=== PATIENT | female | born 1995 | race Two or more races ===

== ENCOUNTER 2017-08-07 23:49 | Inpatient (IN) | payer MEDICAID ==
[~2017-08-07] VITALS: Ht 160 cm; Wt 80.0 kg
[2017-08-08] MEDS ORDERED: D5%-LACTATED RINGERS 1,000 ML IV SCH (00:06)
[2017-08-08] MEDS ORDERED: OXYTOCIN 30U/ 0.9% NaCL 500ML 500 ML IV PRN (00:06)
[2017-08-08] MEDS ORDERED: OXYTOCIN 30U/ 0.9% NaCL 500ML 500 ML IV ONE (00:06)
[2017-08-08 00:30] LABS: HEMATOCRIT 37.2 % (34.6-47.8); HEMOGLOBIN 12.4 g/dL (11.7-16.4); WHITE BLOOD COUNT 10.6 x10^3/uL (3.4-10)
[2017-08-08] MEDS ORDERED: FENTANYL PF 100 MCG/2ML IVPush PRN (00:30)
[2017-08-08] MEDS ORDERED: FENTANYL PF 100 MCG/2ML IV PRN (00:30)
[2017-08-08] MEDS ORDERED: PENICILLIN GK 5,000,000 UNITS in DEXTROSE 5% 100 ML IVPB ONE (00:30)
[2017-08-08] MEDS ORDERED: ONDANSETRON 2MG/ML, 2ML IVPush PRN (00:30)
[2017-08-08] MEDS ORDERED: CALCIUM CARBONATE 500 MG TAB.CHEW PO PRN (00:30)
[2017-08-08] MEDS ORDERED: OXYTOCIN 30U/ 0.9% NaCL 500ML 500 ML ONE ×2 (00:45→13:40)
[2017-08-08] MEDS ORDERED: PLEASE ENTER HEIGHT AND WEIGHT MC SCH (01:00)
[2017-08-08] MEDS ORDERED: PLEASE ENTER ALLERGIES MC SCH ×2 (01:00)
[2017-08-08 01:15] VITALS: BP 123/65
[2017-08-08] MEDS ORDERED: NEWBORN KIT ONE (01:59)
[2017-08-08] MEDS: PENICILLIN GK 2,500,000 UNITS in DEXTROSE 5% 100 ML IVPB SCH ×2 (04:57→08:58)
[2017-08-08] MEDS ORDERED: FENTANYL/BUPIV./NS/PF 250 ML EPIDCONT ONE (07:37)
[2017-08-08] MEDS ORDERED: LIDOCAINE 1%, 20ML ONE ×2 (07:40→09:16)
[2017-08-08] MEDS ORDERED: LIDOCAINE/PF 1.5%-EPI 1:200K, 30ML ONE (07:40)
[2017-08-08] MEDS: LACTATED RINGERS 1,000 ML IV SCH ×2 (08:08→11:22)
[2017-08-08] MEDS ORDERED: FENTANYL/BUPIV./NS/PF 250 ML EPIDCONT SCH (08:16)
[2017-08-08] MEDS ORDERED: LACTATED RINGERS 1,000 ML IV SCH (08:16)
[2017-08-08] MEDS ORDERED: EPHEDRINE 50 MG/ML, 1ML IVPush PRN (08:30)
[2017-08-08] MEDS ORDERED: NALOXONE 0.4 MG/ML, 1ML IVPush PRN (08:30)
[2017-08-08] MEDS ORDERED: LACTATED RINGERS 1,000 ML IVBOLUS PRN (08:30)
[2017-08-08] MEDS ORDERED: OXYTOCIN 30U/ 0.9% NaCL 500ML 500 ML IV SCH (12:37)
[2017-08-08] MEDS ORDERED: BISACODYL 10 MG SUPP PR PRN (13:00)
[2017-08-08] MEDS ORDERED: ONDANSETRON 2MG/ML, 2ML IV PRN (13:00)
[2017-08-08] MEDS ORDERED: MISOPROSTOL 200 MCG TABLET PR PRN (13:00)
[2017-08-08] MEDS ORDERED: METHYLERGONOVINE 0.2 MG/ML IM PRN (13:00)
[2017-08-08] MEDS ORDERED: DOCUSATE 100 MG CAPSULE PO PRN (13:00)
[2017-08-08] MEDS ORDERED: CARBOPROST TROMETHAMINE 250 MCG/ML, 1ML IM PRN (13:00)
[2017-08-08] MEDS ORDERED: METOCLOPRAMIDE 5 MG/ML, 2ML IV PRN (13:00)
[2017-08-08] MEDS ORDERED: GLYCERIN ADULT SUPP PR PRN (13:00)
[2017-08-08] MEDS ORDERED: OXYcodone/APAP 5/325MG TABLET PO PRN ×2 (13:00)
[2017-08-08] MEDS ORDERED: IBUPROFEN 800 MG TABLET ONE (13:47)
[2017-08-08] MEDS: IBUPROFEN 800 MG TABLET PO PRN ×2 (13:48→22:31)
[2017-08-08 14:45] VITALS: BP 115/71
[2017-08-08 20:00] VITALS: BP 104/65
[2017-08-08 20:36] LABS: HEMATOCRIT 31.8 % (34.6-47.8); HEMOGLOBIN 10.9 g/dL (11.7-16.4); WHITE BLOOD COUNT 13.1 x10^3/uL (3.4-10)
[2017-08-09] VITALS: BP 115/79
[2017-08-09 04:00] VITALS: BP 112/74
[2017-08-09] MEDS: IBUPROFEN 800 MG TABLET PO PRN ×2 (07:12→15:19)
[2017-08-09 08:01] VITALS: BP 115/69
[2017-08-09] MEDS ORDERED: PRENATAL VIT/IRON/FA 1 EACH TABLET PO SCH (09:00)
[2017-08-09 12:00] VITALS: BP 112/74
== END 2017-08-09 16:08 | disposition home or self-care (01) | DRG 775 ==
LOC: LDOP 23:49 → EDIP 08-08 00:13 → LDIP 08-08 01:00 → 2NW 08-08 14:36
PROVIDERS: ADMIT Student in an Organized Health Care Education/Training Program; ATTEND Student in an Organized Health Care Education/Training Program
PROC: 10E0XZZ Delivery of Products of Conception, External Approach (ICD-10-PCS; principal; 2017-08-08)
PROC: 0UQMXZZ Repair Vulva, External Approach (ICD-10-PCS; 2017-08-08)
PROC: 3E0R3BZ Introduction of Anesthetic Agent into Spinal Canal, Percutaneous Approach (ICD-10-PCS; 2017-08-08)
PROC: 00HU33Z Insertion of Infusion Device into Spinal Canal, Percutaneous Approach (ICD-10-PCS; 2017-08-08)
DX: O99.824 Streptococcus B carrier state complicating childbirth (principal); O69.81X0 Labor and delivery complicated by cord around neck, without compression, not applicable or unspecified; O70.0 First degree perineal laceration during delivery; Z37.0 Single live birth; Z3A.37 37 weeks gestation of pregnancy
CPT/HCPCS: 36415; 85025; 86850; 86900; J2540; J3490; J2590; J3010; J7120; J7121